=== PATIENT | male | born 1995 | race Caucasian/White ===

== ENCOUNTER → 2020-07-28 | Outpatient (CLI) | payer OTHER | LOC: MHCPAIN 10:01 | DX: G89.29 Other chronic pain (principal) | CPT/HCPCS: G0463 ==

== ENCOUNTER → 2021-03-09 | Outpatient (CLI) | payer OTHER | LOC: MHCPAIN 10:55 | DX: M47.816 Spondylosis without myelopathy or radiculopathy, lumbar region (principal); M53.3 Sacrococcygeal disorders, not elsewhere classified; M54.16 Radiculopathy, lumbar region | CPT/HCPCS: G0463 ==